=== PATIENT | male | born 1935 | race African-American/Black ===

== ENCOUNTER 2018-07-18 05:51 | Emergency (ER) | payer MEDICARE, OTHER ==
[~2018-07-18] VITALS: Ht 177.8 cm; Wt 104.0 kg
[~2018-07-18 05:51] MED LIST: ASPI-1159 PO; HYDR453.3 TP; LORA10TA7 PO; LOSA100T14 PO; NAPR375T5 PO; NIFE60TA10 PO; POTA10TA15 PO; SENN8.6T71 PO; TAMS0.4C31 PO
[2018-07-18] MEDS ORDERED: ALBUTEROL (0.083%) 2.5MG/3ML NEB HHN STA (06:04)
[2018-07-18] MEDS ORDERED: IPRATROPIUM BROMIDE (0.02%) 0.5MG/2.5ML NEB HHN STA (06:04)
[2018-07-18] MEDS ORDERED: METHYLPREDNISOLONE SOD SUCC 125 MG/2 ML VIAL IV STA (06:04)
[2018-07-18] MEDS ORDERED: MAGNESIUM 2 G PREMIX 50 ML IV STA (06:04)
[2018-07-18] MEDS ORDERED: FUROSEMIDE 20MG/2ML VIAL IVP ONE ×2 (06:15→08:00)
[2018-07-18] MEDS ORDERED: DILTIAZEM HCL 5MG/ML 5ML VIAL IV ONE (06:15)
[2018-07-18 06:24] LABS: BASOPHILS % 0.5 % (0.0-2.0); EOSINOPHILS % 3.8 % (0.0-5.0); HEMATOCRIT. 38.2 % (42.0-52.0); HEMOGLOBIN. 12.5 g/dL (14.0-18.0); LYMPHOCYTES % 43.7 % (20.0-50.0); MEAN CORPUSCULAR HEMOGLOBIN 27.2 pg (28.0-32.0); MEAN CORPUSCULAR VOLUME 82.9 fL (80.0-94.0); MEAN PLATELET VOLUME 9.7 fl (7.4-10.4); MONOCYTES % 9.3 % (2.0-8.0); NEUTROPHILS % 42.7 % (40.0-76.0); PLATELET 233 x1000/uL (130-400); RED BLOOD CELL COUNT 4.61 mill/uL (4.7-6.1); RED CELL DISTRIBUTION WIDTH 16.1 % (11.6-14.6)
[2018-07-18 06:32] LABS: CHLORIDE 106 mEq/L (98-107)
[2018-07-18 06:37] LABS: PARTIAL THROMBOPLASTIN TIME 25.2 sec (23.4-31.0); PROTHROMBIN TIME 10.5 sec (9.6-11.0)
[2018-07-18 07:02] LABS: CLARITY URINE CLEAR (CLEAR); COLOR URINE YELLOW (YELLOW); KETONES URINE NEGATIVE (NEGATIVE); LEUKOCYTE ESTERASE URINE NEGATIVE (NEGATIVE); NITRITE URINE NEGATIVE (NEGATIVE); OCCULT BLOOD URINE 1+ (NEGATIVE); PROTEIN URINE 2+ (NEGATIVE); SPECIFIC GRAVITY URINE 1.014 (1.005-1.030)
[2018-07-18] MEDS: LEVOFLOXACIN 750MG PREMIX 150 ML IV ONE ×2 (07:45→09:20)
[2018-07-18 08:47] LABS: BG BASE EXCESS 0.6 mmol/L (-2.0-2.0); BG BILEVEL POS AIRWAY PRESSURE 15/5; BG CARBOXYHEMOGLOBIN 1.1 % (0.5-1.5); BG DEOXYHEMOGLOBIN 1.2 % (0.0-5.0); BG FRACTION INSPIRED OXYGEN 40; BG METHEMOGLOBIN 0.2 % (0.0-1.5); BG OXYGEN SATURATION 98.8 % (92.0-98.5); BG OXYHEMOGLOBIN 97.5 % (94.0-97.0); BG PCO2 39.3 mmHg (35.0-45.0); BG PH 7.421 (7.350-7.450); BG PO2 126.7 mmHg (75.0-100.0); BG SAMPLE SITE RIGHT RADIAL; BG TOTAL HEMOGLOBIN 13.2 g/dL (12.0-18.0); BG VENT MODE MASK - BIPAP
[2018-07-18 11:25] VITALS: BP 177/91
== END 2018-07-18 12:46 | disposition left against medical advice (07) ==
LOC: ER 05:51 → EDBEDREQ 07:37 → CANRESERV 08:09 → ENRESERV 08:09 → ER 12:46 → CANBEDREQ 20:41
DX: J96.00 Acute respiratory failure, unspecified whether with hypoxia or hypercapnia (principal); J18.9 Pneumonia, unspecified organism; D64.9 Anemia, unspecified; I50.40 Unspecified combined systolic (congestive) and diastolic (congestive) heart failure; I11.0 Hypertensive heart disease with heart failure; Z79.899 Other long term (current) drug therapy
CPT/HCPCS: 36415; 36600; 71045; 80053; 81003; 82375; 82805; 83605; 83735; 83880; 84145; 84484; 85025; 85610; 85730; 87040; 87086; 93005; 94640; 94660; 96365; 96366; 96367; 96375; 99291; J1940; J1956; J2930; J3475; J3490; J7611